=== PATIENT | female | born 1990 | race Caucasian/White ===

== ENCOUNTER 2018-01-31 09:54 | Emergency (ER) | payer SELFPAY ==
[~2018-01-31] VITALS: Ht 160 cm; Wt 59.1 kg
[2018-01-31] MEDS ORDERED: SEPTRA DS 8001 TAB PO (10:21)
[2018-01-31 10:35] VITALS: BP 138/74
== END 2018-01-31 10:35 | disposition home or self-care (01) ==
LOC: ED 09:54
DX: L02.01 Cutaneous abscess of face (principal); L02.11 Cutaneous abscess of neck; F17.200 Nicotine dependence, unspecified, uncomplicated